=== PATIENT | female | born 2000 | race Caucasian/White ===

== ENCOUNTER 2018-10-17 14:34 | Emergency (ER) | payer MEDICAID ==
[~2018-10-17] VITALS: Ht 170.2 cm; Wt 88.0 kg
[2018-10-17 15:45] LABS: Urine Amorphous Crystal FEW /hpf (None Seen); Urine Bacteria FEW /hpf (None Seen); Urine Blood Negative /uL (Negative); Urine Mucus FEW (None Seen); Urine WBC 36 /hpf (0 - 5)
[2018-10-17 15:49] LABS: Basophils # (auto) 0.1 uL; Basophils % (auto) 0.5 % (0.0-2.0); Eosinophils # (auto) 0 uL; Eosinophils % (auto) 0.2 % (0.0-7.0); Hematocrit 38.1 % (36.0-46.0); Hemoglobin 12.8 g/dL (12.2-16.2); Lymphocytes # (auto) 1.2 uL; Lymphocytes % (auto) 11.2 % (10.0-50.0); Mean Corpuscular Hemoglobin 30.3 pg (28.0-32.0); Mean Corpuscular Hgb Conc. 33.7 g/dL (32.0-36.0); Mean Corpuscular Volume 89.9 fL (80.0-100.0); Monocytes # (auto) 0.5 uL; Monocytes % (auto) 4.3 % (0.0-12.0); Neutrophils # (auto) 9.1 uL; Neutrophils % (auto) 83.8 % (37.0-80.0); Platelet Count (auto) 223 10^3/uL (140-450); Red Blood Cells 4.24 10^6/uL (4.0-5.20); Red Cell Distribution Width 15.1 % (11.8-14.3); White Blood Cell 10.8 10^3/uL (4.4-10.8)
[2018-10-17 16:01] LABS: Albumin 3.2 g/dL (3.4-5.0); BUN/Creatinine Ratio 7.3
[2018-10-17 16:18] LABS: Potassium 3.2 mmol/L (3.5-5.1)
[2018-10-17 16:20] VITALS: BP 113/70
[2018-10-17 16:27] LABS: Bilirubin, Total 0.2 mg/dL (0.2-1.0); Total Protein 7.6 g/dL (6.4-8.2)
== END 2018-10-17 16:55 | disposition home or self-care (01) ==
LOC: ER 14:38
DX: O23.42 Unspecified infection of urinary tract in pregnancy, second trimester (principal); Z3A.24 24 weeks gestation of pregnancy
CPT/HCPCS: 36415; 80053; 81001; 85025